=== PATIENT | male | born 1950 | race Caucasian/White ===

== ENCOUNTER → 2016-06-13 | Outpatient (CLI) | payer OTHER, MEDICARE | LOC: MMPC 11:11 | PROVIDERS: ATTEND Surgery | DX: Z80.0 Family history of malignant neoplasm of digestive organs (principal); Z12.11 Encounter for screening for malignant neoplasm of colon | CPT/HCPCS: 99202; G0463 ==

== ENCOUNTER 2016-06-21 07:09 | Day surgery (SDC) | payer OTHER, MEDICARE ==
[~2016-06-21 07:09] MED LIST: LIDOCAINE W/ SODIUM BICARB 0.5 ML SYR ONE; Lactated Ringers 1,000 ML PRIMARY IV ONE
--- NOTE | 2016-06-21 08:28 | GEN.OPNOTE ---
Colonoscopy Procedure Note Surgery Date: 06/21/16 Preoperative Diagnosis: Family history of colon cancer Postoperative Diagnosis: Diverticulosis. Family history colon cancer Procedure: Colonoscopy Surgeon: Elvis Gonzalez MD Anesthesia Provider: Kate Read CRNA Anesthesia Type: MAC Indications: 66-year-old gentleman who claims is been over 8 years since his last colonoscopy. He has a family history of colon cancer with his dad having colon cancer Findings: Prep : Excellent Cecum : Olympus video colonoscopy scope inserted over the cecum. Ileocecal valve clearly identified. He had normal-appearing cecal anatomy with no abnormal pathology Ascending : Ascending colon was free from polyps tumors or cancers Transverse : Transverse colon had no polyps tumors or cancers Sigmoid : Descending colon free from disease sigmoid colon had scattered diverticulum Rectum : Rectum free from disease Digital Rectal Exam : A lubricated flexible colonoscope was inserted and passed to the blind end of the cecum.
[2016-06-21 09:43] VITALS: RESP 16; TEMP 98
== END 2016-06-21 08:55 | disposition home or self-care (01) ==
LOC: SDSC 07:09
PROVIDERS: ATTEND Surgery
DX: Z12.11 Encounter for screening for malignant neoplasm of colon (principal); K57.90 Diverticulosis of intestine, part unspecified, without perforation or abscess without bleeding; Z80.0 Family history of malignant neoplasm of digestive organs
CPT/HCPCS: 45378; J2704; J7120